=== PATIENT | male | born 1950 | race Caucasian/White ===

== ENCOUNTER 2021-01-18 10:09 | Day surgery (SDC) | payer OTHER ==
[2021-01-16 10:07] VITALS: BMI 30.4
--- NOTE | 2021-01-17 15:31 | HP ---
HISTORY AND PHYSICAL DATE OF SURGERY: 01/18/2021 Marco A Barajas is a 70-year-old gentleman seen with progressive right knee pain. We discussed options for treatment. He elected to proceed with arthroscopy. Consent was obtained. PAST MEDICAL HISTORY: Gastroesophageal reflux disease. PAST SURGICAL HISTORY: Carpal tunnel release, cholecystectomy. MEDICATIONS: Omeprazole, aspirin. ALLERGIES: None. SOCIAL HISTORY: He denies tobacco use. PHYSICAL EXAMINATION: Evaluation of the right knee his range of motion is 0 to 130. There is a mild effusion. Tenderness medial joint line. Positive medial Andrzej's. Ligaments are stable. Hip rotation is without pain. His distal neurovascular exam is intact. RADIOGRAPHS: Right knee radiographs revealed moderate osteoarthritic changes. Right knee MRI revealed medial meniscal tear and osteoarthritis. IMPRESSION: 1. Internal derangement of right knee with medial meniscal tear. 2. Right knee osteoarthritis. 3. Gastroesophageal reflux disease. PLAN: Right knee arthroscopy with partial meniscectomy and debridement. MMODL / IJN: [id number] /
[~2021-01-18 10:09] MED LIST: DEXAMETHASONE SOD PHOSPHATE 4 MG/ML 1 ML VIAL IV ONE; HYDROmorphone 0.5 MG/0.5 ML SYRINGE IVP PRN; LACTATED RINGERS 1,000 ML IV SCH; LIDOCAINE 1% (10MG/ML) FOR IV START INTRADERMA PRN; ONDANSETRON 4 MG/2 ML VIAL IVP ONE
[2021-01-18 10:34] VITALS: RESP 16
[2021-01-18] MEDS ORDERED: fentaNYL (PF) 50 MCG/ML 2 ML AMP ONE (11:17)
[2021-01-18] MEDS ORDERED: SUCCINYLCHOLINE CHLORIDE 100 MG/5 ML SYR IV ONE (11:17)
[2021-01-18] MEDS ORDERED: MIDAZOLAM 2 MG/2 ML VIAL ONE (11:17)
[2021-01-18] MEDS ORDERED: PROPOFOL 10 MG/ML 20 ML VIAL IV ONE (11:17)
[2021-01-18] MEDS ORDERED: GLYCOPYRROLATE 0.2 MG/ML 2 ML VIAL ONE (11:17)
[2021-01-18] MEDS ORDERED: LIDOCAINE 1% INJ 10MG/ML (20 ML MDV) ONE (11:17)
[2021-01-18] MEDS ORDERED: BUPIVACAINE (PF) 0.25% 30 ML VIAL INTRAARTIC ONE (11:18)
--- NOTE | 2021-01-18 12:12 | P.OP ---
Date of Procedure: 01/18/21 Preoperative Diagnosis: Internal derangement right knee Postoperative Diagnosis: 1. Tear medial meniscus right knee 2. Grade 3 chondromalacia medial femoral condyle right knee 3. Reactive synovitis medial, lateral and suprapatellar compartments right knee Procedure(s) Performed: 1. Arthroscopic partial medial meniscectomy right knee 2. Arthroscopic chondroplasty medial femoral condyle right knee 3. Arthroscopic partial synovectomy medial, lateral and suprapatellar compartments right knee Anesthesia: PRANAYA, local Surgeon: Elton Franklin Estimated Blood Loss (ml): 7 Pathology: none sent Condition: stable Disposition: PACU Indications for Procedure: 70-year-old patient seen with progressive right knee pain. After treatment options were discussed, he elected to proceed with arthroscopy. Operative Findings: See description of procedure Description of Procedure: Patient was taken to the operative suite. Patient underwent a general anesthetic by the department of anesthesia. Patient was given preoperative a ntibiotics. The right lower extremity was placed in a well-padded arthroscopic leg oliveros. The right leg was prepped and draped in the normal sterile orthopedic fashion. A lateral parapatellar and suprapatellar incision was made. Trochars were inserted. Arthroscopy was initiated. Suprapatellar pouch revealed diffuse thick reactive synovitis. The patellofemoral joint appeared to articulate congruently. There was grade 2 chondromalacia of the patella with no significant osteochondral tears present. The scope was guided into the medial gutter. No loose bodies or plica were identified. The scope was then guided into the medial compartment. A medial parapatellar incision was made. Trocar inserted followed by probe. There was a complex tear involving the posterior horn and midbody of the medial meniscus. There were grade 3 chondromalacia changes of the medial femoral condyle with some osteochondral tears present. There were grade 3/4 chondromalacia changes of medial tibial plateau and an area along the medial aspect with exposed bone measuring approximately 1 x 1.5 cm. There was reactive synovitis anteriorly. I performed a partial medial meniscectomy getting down to stable meniscal tissue. I performed a chondroplasty of the medial femoral condyle getting down to stable osteochondral tissue. I performed a partial synovectomy decompressing the thick reactive synovitis. The residual meniscus was probed and found be stable. The residual osteochondral surface of the medial femoral condyle was stable. There was good decompression of the synovitis. Scope and probe were then guided into the intercondylar notch. Cruciates were identified, probed and found to be stable. The scope and probe were then guided into lateral compartment. lateral meniscus is probed and found to be stable. There were mild grade 1 chondromalacia changes lateral compartment. There was some thick reactive synovitis anteriorly. I introduced a motorized shaver and performed a partial synovectomy decompressing the thick reactive synovitis. The shaver was removed. There was good decompression of the synovitis. The scope was in guided back into the suprapatellar compartment. I introduced a motorized shaver into the super patellar compartment. I debrided some piecemeal fragments of meniscus I encountered. I performed a partial synovectomy decompressing the thick reactive synovitis. The shaver was removed. There was good decompression of the synovitis. Instruments were now removed from the joint. The joint was infiltrated with .25% Marcaine. Steri-Strips were applied to the portal sites. Sterile dressings were applied. The patient was placed into a TONY hose. No tourniquet was utilized. The patient was awakened, transferred to a bed and taken to recovery stable satisfactory condition.
[2021-01-18 12:16] VITALS: TEMP 97
[2021-01-18 13:13] VITALS: BP 120/82; PULSE 53
== END 2021-01-18 13:59 | disposition home or self-care (01) ==
LOC: OR 10:09
PROVIDERS: ATTEND Orthopaedic Surgery
DX: S83.241A Other tear of medial meniscus, current injury, right knee, initial encounter (principal); K21.9 Gastro-esophageal reflux disease without esophagitis; Z79.899 Other long term (current) drug therapy; Z79.82 Long term (current) use of aspirin; M17.11 Unilateral primary osteoarthritis, right knee
CPT/HCPCS: 29881; 29876; J2250; J1100; J0690; J2405; J2001; J3010; J0330; J2704

== ENCOUNTER 2021-03-16 09:32 | Day surgery (SDC) | payer OTHER ==
[2021-03-13 11:49] VITALS: BMI 30.2
--- NOTE | 2021-03-15 21:22 | HP ---
HISTORY AND PHYSICAL REASON FOR ADMISSION: Surgery 03/16/2021 HISTORY OF PRESENT ILLNESS: Marco A Barajas is a 70-year-old gentleman seen with progressive left knee pain. We discussed options for treatment. He elected to proceed with arthroscopy. Consent was obtained. PAST MEDICAL HISTORY: Gastroesophageal reflux disease. PAST SURGICAL HISTORY: Cholecystectomy, carpal tunnel surgery. MEDICATIONS: Tylenol, omeprazole. ALLERGIES: None. SOCIAL HISTORY: Denies tobacco use. PHYSICAL EVALUATION OF THE LEFT KNEE: Range of motion 0-125. Tenderness along the medial lateral joint line. Positive medial Andrzej's. Positive lateral Andrzej's. Ligaments stable. Hip rotation without pain. Distal neurovascular exam intact. RADIOGRAPHS: Radiographs of the left knee revealed moderate osteoarthritic changes. MRI left knee revealed medial and lateral meniscal tears. IMPRESSION: 1. Internal derangement of left knee with medial and lateral meniscal tears. 2. Left knee osteoarthritis. 3. Gastroesophageal reflux disease. PLAN: Left knee arthroscopy with partial meniscectomy and debridement. Surgery scheduled for 03/16/2021. MMODL / IJN: [id number] /
[~2021-03-16 09:32] MED LIST changes: -LIDOCAINE 1% (10MG/ML) FOR IV START INTRADERMA PRN; +MIDAZOLAM 2 MG/2 ML VIAL IV PRN
[2021-03-16 10:12] VITALS: RESP 16
[2021-03-16] MEDS ORDERED: LIDOCAINE 1% INJ 10MG/ML (20 ML MDV) ONE (11:51)
[2021-03-16] MEDS ORDERED: fentaNYL (PF) 50 MCG/ML 2 ML AMP ONE (11:51)
[2021-03-16] MEDS ORDERED: PROPOFOL 10 MG/ML 20 ML VIAL IV ONE (11:51)
[2021-03-16] MEDS ORDERED: MIDAZOLAM 2 MG/2 ML VIAL ONE (11:51)
[2021-03-16] MEDS ORDERED: SUCCINYLCHOLINE CHLORIDE 100 MG/5 ML SYR IV ONE (11:51)
[2021-03-16] MEDS ORDERED: BUPIVACAINE (PF) 0.25% 30 ML VIAL SQ ONE (11:54)
--- NOTE | 2021-03-16 12:43 | P.OP ---
Date of Procedure: 03/16/21 Preoperative Diagnosis: Internal derangement left knee Postoperative Diagnosis: 1. Tear medial meniscus left knee 2. Grade 4 chondromalacia medial compartment left knee 3. Reactive synovitis medial, lateral and suprapatellar compartments left knee Procedure(s) Performed: 1. Arthroscopic partial medial meniscectomy left knee 2. Arthroscopic chondroplasty medial femoral condyle left knee 3. Arthroscopic partial synovectomy medial, lateral and suprapatellar compartments left knee Anesthesia: PRANAYA, local Surgeon: Elton Franklin Estimated Blood Loss (ml): 11 Pathology: none sent Condition: stable Disposition: PACU Indications for Procedure: 70-year-old patient seen with progressive left knee pain. After treatment options were discussed, he elected to proceed with arthroscopy. Operative Findings: see description of procedure Description of Procedure: Patient was taken to the operative suite. Patient underwent a general anesthetic by the department of anesthesia. Patient was given preoperative antibiotics. The left lower extremity was placed in a well-padded arthroscopic leg oliveros. The left leg was prepped and draped in the normal sterile orthopedic fashion. A lateral parapatellar and suprapatellar incision was made. Trochars were inserted. Arthroscopy was initiated. Suprapatellar pouch revealed diffuse thick reactive synovitis. The patellofemoral joint appeared to articulate congruently. There was grade 2/3 chondromalacia of the patellofemoral joint without osteochondral tears. The scope was guided into the medial gutter. No loose bodies or plica were identified The scope was then g uided into the medial compartment. A medial parapatellar incision was made. Trocar inserted followed by probe. There was a tear involving the mid body and posterior horn of the medial meniscus. There were areas of grade 4 chondromalacia involving the medial femoral condyle and tibial plateau along its weightbearing surface area with exposed bone on both sides([id number] arthritis). There was thick reactive synovitis anteriorly. I performed a partial medial meniscectomy getting down to stable meniscal tissue. I performed a chondroplasty along the weightbearing surface the medial femoral condyle with some osteochondral flap tears present getting down to stable osteochondral tissue. I performed a partial synovectomy decompressing the thick reactive synovitis. The residual meniscus was stable. There was good decompression synovitis. Scope and probe were then guided into the intercondylar notch. Cruciates were identified, probed and found to be stable. The scope and probe were then guided into lateral compartment. Lateral meniscus was stable. There were grade 1/2 chondromalacia changes lateral compartment with no tears. There was thick reactive synovitis anteriorly. I introduced a motorized shaver and performed a partial synovectomy decompressing thick reactive synovitis. The shaver was removed. There was good decompression synovitis. The scope was in guided back into the suprapatellar compartment. I introduced a motorized shaver into the super compartment. I debrided some piecemeal fragments of meniscus I encountered. I performed a partial synovectomy. The shaver was removed. There was good decompression of the synovitis. Instruments were now removed from the joint. The joint was infiltrated with .25% Marcaine. Steri-Strips were applied to the portal sites. Sterile dressings were applied. The patient was placed into a TONY hose. No tourniquet was utilized. The patient was awakened, transferred to a bed and taken to recovery stable satisfactory condition.
[2021-03-16 12:53] VITALS: TEMP 97
[2021-03-16 13:24] VITALS: BP 145/82
[2021-03-16] MEDS ORDERED: HYDROcodone/APAP 5-325MG 1 EACH TAB ONE (13:26)
[2021-03-16] MEDS ORDERED: HYDROcodone/APAP 5-325MG 1 EACH TAB PO ONE (13:26)
[2021-03-16 13:42] VITALS: PULSE 58
== END 2021-03-16 14:08 | disposition home or self-care (01) ==
LOC: OR 09:32
PROVIDERS: ATTEND Orthopaedic Surgery
DX: S83.242A Other tear of medial meniscus, current injury, left knee, initial encounter (principal); M94.262 Chondromalacia, left knee; M65.862 Other synovitis and tenosynovitis, left lower leg; K21.9 Gastro-esophageal reflux disease without esophagitis; Z79.899 Other long term (current) drug therapy
CPT/HCPCS: 29881; 29876; J2250; J1100; J0690; J2405; J2001; J3010; J0330; J2704

== ENCOUNTER 2022-04-16 10:56 | Observation (INO) | payer OTHER ==
[2022-04-16] MEDS ORDERED: MORPHINE SULFATE 4 MG/ML SYRINGE IVP STA (12:36)
[2022-04-16] MEDS ORDERED: HYDROmorphone 1 MG/ML 1 ML SYRINGE IVP STA (12:59)
[2022-04-16] MEDS ORDERED: NALOXONE 0.4 MG/ML 1 ML VIAL IV PRN (13:00)
[2022-04-16] MEDS ORDERED: ONDANSETRON 4 MG/2 ML VIAL IVP PRN (13:00)
[2022-04-16] MEDS ORDERED: HYDROmorphone 1 MG/ML 1 ML SYRINGE IVP PRN (13:00)
--- NOTE | 2022-04-16 13:00 | ED ---
Male Urogenital HPI - General Chief complaint: Urogenital Stated complaint: abd pain Time Seen by Provider: 04/16/22 11:16 Source: EMS Mode of arrival: EMS Limitations: no limitations - History of Present Illness Initial comments: 71-year-old male with past medical history of nephrolithiasis, Obregon's esophagus presents to the emergency department from [facility]. Patient reports that he's had some dull left flank pain for the past couple of days. Thought that it was due to his hip replacement. This morning the patient awoke and had significant pain. He went into [facility] where they found that he had a 6 mm proximal left ureteral stone. Kidney function was normal. No signs of urinary tract infection. He did receive fentanyl and Toradol but continued to have pain and therefore he was transferred to our hospital. Rates his pain currently as a 6 out of 10. Admits to nausea without vomiting. No fevers. No other alleviating, precipitating or modifying factors - Related Data Home Medications Medication Instructions Recorded Confirmed Aspirin EC [Ecotrin Low Dose] 81 mg PO DAILY 04/16/22 04/16/22 Omeprazole Magnesium [PriLOSEC OTC] 20 mg PO DAILY 04/16/22 04/16/22 Previous Rx's Medication Instructions Recorded Ketorolac [Toradol] 10 mg PO Q6HR PRN #12 tab 04/17/22 Ketorolac [Toradol] 10 mg PO Q6HR PRN #12 tab 04/17/22 Tamsulosin [Flomax] 0.4 mg PO DAILY #30 cap 04/17/22 Tamsulosin [Flomax] 0.4 mg PO DAILY #30 cap 04/17/22 Allergies Allergy/AdvReac Type Severity Reaction Status Date / Time No Known Allergies Allergy Verified 04/16/22 13:43 Review of Systems ROS Statement: Those systems with pertinent positive or pertinent negative responses have been documented in the HPI. ROS Other: All systems not noted in ROS Statement are negative. Past Medical History Past Medical History: GERD/Reflux Additional Past Medical History / Comment(s): Hx kidney stones 20 yrs ago. History of Any Multi-Drug Resistant Organisms: None Reported Past Surgical History: Orthopedic Surgery Additional Past Surgical History / Comment(s): Carpal tunnel surgery, surgery for kidney stones, total knee replacement Past Anesthesia/Blood Transfusion Reactions: No Reported Reaction, Motion Sickness Past Psychological History: No Psychological Hx Reported Smoking Status: Never smoker Past Alcohol Use History: None Reported Past Drug Use History: None Reported - Past Family History Mother Family Medical History: No Reported History General Exam Limitations: no limitations General appearance: alert, in no apparent distress Head exam: Present: atraumatic, normocephalic, normal inspection Eye exam: Present: normal appearance, PERRL, EOMI. Absent: scleral icterus, conjunctival injection, periorbital swelling ENT exam: Present: normal exam, mucous membranes moist Neck exam: Present: normal inspection. Absent: tenderness, meningismus, lymphadenopathy Respiratory exam: Present: normal lung sounds bilaterally. Absent: respiratory distress, wheezes, rales, rhonchi, stridor Cardiovascular Exam: Present: regular rate, normal rhythm, normal heart sounds. Absent: systolic murmur, diastolic murmur, rubs, gallop, clicks GI/Abdominal exam: Present: soft, normal bowel sounds. Absent: distended, tenderness, guarding, rebound, rigid Extremities exam: Present: normal inspection, full ROM, normal capillary refill. Absent: tenderness, pedal edema, joint swelling, calf tenderness Back exam: Present: CVA tenderness (L) Neurological exam: Present: alert, oriented X3, CN II-XII intact Psychiatric exam: Present: normal affect, normal mood Skin exam: Present: warm, dry, intact, normal color. Absent: rash Course Vital Signs 04/16/22 04/16/22 04/16/22 10:58 12:54 14:00 Temperature 97.3 F L Pulse Rate 48 L 49 L Respiratory 16 18 18 Rate Blood Pressure 136/78 128/71 O2 Sat by Pulse 99 98 Oximetry Medical Decision Making - Medical Decision Making Upon arrival patient is placed into room 18. There are history and physical exam was performed. Patient was given 1 mg of Dilaudid for pain control. I reviewed the patient's transfer paperwork. Did call and speak with Dr. Ceron. Patient will be admitted for uncontrolled pain - Lab Data Result diagrams: 04/17/22 05:24 04/17/22 05:24 Disposition Clinical Impression: Left ureteral stone, Flank pain, Bladder calculi Disposition: ADMITTED IP TO THIS HOSP Condition: Good Is patient prescribed a controlled substance at d/c from ED?: No Time of Disposition: 12:57 Decision to Admit Reason: Admit from EC Decision Date: 04/16/22 Decision Time: 12:57
[2022-04-16] MEDS: SODIUM CHLORIDE 0.9% 1,000 ML IV SCH ×2 (13:09→21:17)
--- NOTE | 2022-04-16 13:36 | P.GSHP ---
History of Present Illness H&P Date: 04/16/22 Chief Complaint: Left renal colic The patient is a 71-year-old white male with a history of recurrent urolithiasis. He has undergone stent placement in the past, as well as ESWL. He has experienced left lower back/hip discomfort for several days, but his pain became severe early this morning. He was evaluated at [facility]. A CT scan showed evidence of mild left hydronephrosis due to a 6 mm left proximal ureteral calculus. Bladder calculi were also seen. - Constitutional Constitutional: Denies chills, Denies fever - Gastrointestinal Gastrointestinal: Reports nausea, Reports vomiting - Genitourinary (Female) Genitourinary: Reports flank pain, Reports kidney stones, Denies dysuria, Denies hematuria Past Medical History Past Medical History: GERD/Reflux Additional Past Medical History / Comment(s): Hx kidney stones 20 yrs ago. History of Any Multi-Drug Resistant Organisms: None Reported Past Surgical History: Orthopedic Surgery Additional Past Surgical History / Comment(s): Carpal tunnel surgery, surgery for kidney stones, total knee replacement Past Anesthesia/Blood Transfusion Reactions: No Reported Reaction, Motion Sickness Past Psychological History: No Psychological Hx Reported Smoking Status: Never smoker Past Alcohol Use History: None Reported Past Drug Use History: None Reported - Past Family History Mother Family Medical History: No Reported History Medications and Allergies Home Medications Medication Instructions Recorded Confirmed Type No Known Home Medications 03/13/21 03/13/21 History Allergies Allergy/AdvReac Type Severity Reaction Status Date / Time No Known Allergies Allergy Verified 03/16/21 10:06 Surgical - Exam Vital Signs Temp Pulse Resp BP Pulse Ox 97.3 F L 48 L 16 136/78 99 04/16/22 10:58 04/16/22 10:58 04/16/22 10:58 04/16/22 10:58 04/16/22 10:58 - General well developed, well nourished, moderate distress - Neck no masses, trachea midline - Respiratory normal respiratory effort - Abdomen Abdomen: soft, non tender, no guarding, no rigid, no rebound - Genitourinary normal penis with no external lesions, testicles non-tender - Psychiatric oriented to time, oriented to person, oriented to place, speech is normal, memory intact Results - Imaging CT scan - abdomen: report reviewed Assessment and Plan (1) Calculus of ureter Current Visit: Yes Status: Acute Code(s): N20.1 - CALCULUS OF URETER SNOMED Code(s): 58521220 (2) Hydronephrosis with obstructing calculus Current Visit: Yes Status: Acute Code(s): N13.2 - HYDRONEPHROSIS WITH RENAL AND URETERAL CALCULOUS OBSTRUCTION SNOMED Code(s): 90510400 Plan: I had a lengthy discussion with the patient regarding his obstructing ureteral calculus. He has been admitted for the management of intractable pain. I have suggested he undergo cystoscopy with left ureteral stent insertion to relieve obstruction. I'm hopeful that this can be performed later today. This was reviewed with the patient, and potential risks were discussed including anesthesia, bleeding, infection, ureteral injury, and inability to successfully place the stent. He will likely undergo elective ureteroscopic removal of the calculus in 2-3 weeks, at which time the ureteral stent will be removed. Time with Patient: Greater than 30
[2022-04-16] MEDS ORDERED: LIDOCAINE 2% INJ 20 MG/ML (2 ML VIAL) ONE (22:00)
[2022-04-16] MEDS ORDERED: fentaNYL (PF) 50 MCG/ML 2 ML AMP ONE (22:00)
[2022-04-16] MEDS ORDERED: MIDAZOLAM 2 MG/2 ML VIAL ONE (22:00)
[2022-04-16] MEDS ORDERED: IV FLUID CONTINUATION 1,000 ML IV ONE (22:00)
[2022-04-16] MEDS ORDERED: SODIUM CHLORIDE 0.9% 100 ML BAG ONE (22:00)
[2022-04-16] MEDS ORDERED: ceFAZolin 1,000 MG VIAL ONE (22:00)
[2022-04-16] MEDS ORDERED: PROPOFOL 10 MG/ML 20 ML VIAL IV ONE (22:00)
[2022-04-16] MEDS ORDERED: KETOROLAC 15 MG/ML 1 ML VIAL IVP PRN (22:39)
--- NOTE | 2022-04-16 22:39 | P.OP ---
Date of Procedure: 04/16/22 Preoperative Diagnosis: Left ureteral calculus, bladder calculi Postoperative Diagnosis: Same Procedure(s) Performed: Cystoscopy, removal of bladder calculi, left ureteral stent insertion Anesthesia: PRANAYA Surgeon: Hoang Ceron Estimated Blood Loss (ml): 0 IV fluids (ml): 400 Pathology: other (Bladder calculi, sent for chemical analysis) Condition: stable Disposition: PACU Indications for Procedure: The patient is a 71-year-old white male admitted with left renal colic. CT scan shows evidence of left hydronephrosis due to a 6 mm left proximal ureteral calculus. 2 small bladder calculi are also seen. He now comes for cystoscopy with stent insertion. Operative Findings: 2 small bladder calculi removed and sent for chemical analysis. Successful left ureteral stent insertion. Description of Procedure: The patient was taken to the operating room and placed in the dorsolithotomy position, with legs supported in Mikey stirrups. The external genitalia was prepped and draped sterilely. The 30 lens was used to introduce the 22-[place] Stortz cystoscopic sheath through the urethra and into the bladder under direct vision. The prostatic urethra showed evidence of trilobar enlargement. The bladder was examined in its entirety. Both ureteral orifices were of normal anatomic location and configuration. No tumors were seen. 2 small bladder calculi were seen and were removed through the cystoscope, the largest measuring approximately 3-4 mm in size. A 0.035 inch Glidewire was passed through the cystoscope. The left ureteral orifice was cannulated, and the Glidewire was s lowly advanced beyond the calculus (which was radio opaque) and up to the renal pelvis. A 24 cm, 6-[place] Islander double-J ureteral stent was placed over the wire. Proper stent positioning was verified fluoroscopically and endoscopically. The bladder was emptied and the cystoscope removed. The patient tolerated the procedure well was taken to the recovery room in stable condition.
[2022-04-17] MEDS: SODIUM CHLORIDE 0.9% 1,000 ML IV SCH (03:56)
--- NOTE | 2022-04-17 07:33 | FL ---
Intraoperative/procedural fluoroscopic services were provided for a left ureteral stent placement. To fabby fluoroscopy time is 3 seconds with a total of 1 submitted image to PACS. Please see the operative note for further details.
[2022-04-17 08:22] VITALS: BP 124/64; PULSE 64; RESP 18; TEMP 99.3
--- NOTE | 2022-04-17 08:50 | P.DS ---
Providers Date of admission: 04/16/22 13:00 Expected date of discharge: 04/17/22 Attending physician: Hoang Ceron Primary care physician: Physician Nonstaff - Discharge Diagnosis(es) (1) Calculus of ureter Current Visit: Yes Status: Acute (2) Hydronephrosis with obstructing calculus Current Visit: Yes Status: Acute Hospital Course: Patient is a 71-year-old white male admitted with left renal colic due to a 6 mm left proximal ureteral calculus. He was treated with IV hydration and pa renteral analgesics. He underwent placement of a left ureteral stent and was more comfortable the following morning. He reported hematuria and was reassured that this is expected following stent placement. He will be discharged home, and arrangements made for him to undergo ureteroscopic removal of his calculus. Procedures: Cystoscopy, left ureteral stent insertion in 04/16/2022 Patient Condition at Discharge: Good Plan - Discharge Summary Discharge Rx Participant: No New Discharge Prescriptions: New Tamsulosin [Flomax] 0.4 mg PO DAILY #30 cap Tamsulosin [Flomax] 0.4 mg PO DAILY #30 cap Ketorolac [Toradol] 10 mg PO Q6HR PRN #12 tab PRN Reason: Pain Ketorolac [Toradol] 10 mg PO Q6HR PRN #12 tab PRN Reason: Pain No Action Aspirin EC [Ecotrin Low Dose] 81 mg PO DAILY Omeprazole Magnesium [PriLOSEC OTC] 20 mg PO DAILY Discharge Medication List Aspirin EC [Ecotrin Low Dose] 81 mg PO DAILY 04/16/22 [History] Omeprazole Magnesium [PriLOSEC OTC] 20 mg PO DAILY 04/16/22 [History] Ketorolac [Toradol] 10 mg PO Q6HR PRN #12 tab 04/17/22 [Rx] Ketorolac [Toradol] 10 mg PO Q6HR PRN #12 tab 04/17/22 [Rx] Tamsulosin [Flomax] 0.4 mg PO DAILY #30 cap 04/17/22 [Rx] Tamsulosin [Flomax] 0.4 mg PO DAILY #30 cap 04/17/22 [Rx] Follow up Appointment(s)/Referral(s): Nonstaff,Physician [Primary Care Provider] - 1-2 days Activity/Diet/Wound Care/Special Instructions: Diet as tolerated. Activity as tolerated. Patient will be contacted by Dr. Ceron' office to arrange follow-up. Discharge Disposition: HOME SELF-CARE
[2022-04-17 09:28] LABS: African American GFR (CKD) 64.1 (60.0-200.0); Anion Gap 5.8 mmol/L (10.00-18.00); BUN/Creat Ratio 16.31 Ratio (12.00-20.00); Basophils # (A) 0.03 X 10*3/uL (0.00-0.10); Basophils % (A) 0.4 %; Blood Urea Nitrogen 21.2 mg/dL (9.0-27.0); Calcium 8.1 mg/dL (8.7-10.3); Carbon Dioxide 27.2 mmol/L (20.0-27.5); Eosinophils # (A) 0.15 X 10*3/uL (0.04-0.35); HGB 11.5 g/dL (13.0-17.0); Immature Grans, Automated 0.4 %; Lymphocytes # (A) 0.76 X 10*3/uL (0.90-5.00); MCH 28.9 pg (27.0-32.0); MCHC 32.9 g/dL (32.0-37.0); MCV 87.9 fL (80.0-97.0); Mean Platelet Volume 11.4 fL (9.5-12.2); Monocytes # (A) 0.69 X 10*3/uL (0.20-1.00); Monocytes % (A) 9.1 %; NRBC Per 100 WBC 0 /100 WBCS (0.0-0.0); Neutrophils # (A) 5.93 X 10*3/uL (1.80-7.70); Neutrophils % (A) 78.1 %; Non-African American GFR(CKD) 55.3 (60.0-200.0); Platelet Count 156 X 10*3/uL (140-440); Potassium 4.1 mmol/L (3.5-5.5); RBC 3.98 X 10*6/uL (4.40-5.60); RDW 15.3 % (11.5-14.5); WBC 7.59 X 10*3/uL (4.50-10.00)
== END 2022-04-17 10:05 | disposition home or self-care (01) ==
LOC: EC 10:56 → 6NMEDSUR 13:00
PROVIDERS: ADMIT Urology; ATTEND Urology
DX: N13.2 Hydronephrosis with renal and ureteral calculous obstruction (principal); N21.0 Calculus in bladder; K22.70 Barrett's esophagus without dysplasia; K21.9 Gastro-esophageal reflux disease without esophagitis; Z79.82 Long term (current) use of aspirin; Z79.899 Other long term (current) drug therapy; Z87.442 Personal history of urinary calculi; Z96.659 Presence of unspecified artificial knee joint; Z90.49 Acquired absence of other specified parts of digestive tract; Z98.890 Other specified postprocedural states
CPT/HCPCS: 52332; 96374; 99285; 80048; 85025; 82365; G0378 ×2; C2625; C1769; C1758; J2250; J0690; J3010; J1170; J1885; J2704; J2001

== ENCOUNTER 2022-05-10 07:00 | Day surgery (SDC) | payer OTHER ==
--- NOTE | 2022-05-05 14:49 | P.GSHP ---
History of Present Illness H&P Date: 05/05/22 Chief Complaint: Left flank pain The patient is a 71-year-old white male with a history of recurrent urolithiasis. He has undergone stent placement in the past, as well as ESWL. He experienced left lower back/hip discomfort for several days last month, and he presented to the ER at [facility] when his pain became severe. A CT scan showed evidence of mild left hydronephrosis due to a 6 mm left proximal ureteral calculus. Bladder calculi were also seen. He was transferred to [facility] for further management on underwent left ureteral stent insertion. He now comes for cystoscopy, left ureteral stent removal, left ureteroscopy with Holmium laser lithotripsy and possible stone basketing. - Constitutional Constitutional: Denies chills, Denies fever - Gastrointestinal Gastrointestinal: Reports nausea, Reports vomiting - Genitourinary (Male) Genitourinary: Reports flank pain, Reports hematuria, Reports kidney stones, Denies dysuria Past Medical History Past Medical History: GERD/Reflux Additional Past Medical History / Comment(s): Hx kidney stones 20 yrs ago. History of Any Multi-Drug Resistant Organisms: None Reported Past Surgical History: Orthopedic Surgery Additional Past Surgical History / Comment(s): Carpal tunnel surgery, surgery for kidney stones, total knee replacement Past Anesthesia/Blood Transfusion Reactions: No Reported Reaction, Motion Sickness Past Psychological History: No Psychological Hx Reported Smoking Status: Never smoker Past Alcohol Use History: None Reported Past Drug Use History: None Reported - Past Family History Mother Family Medical History: No Reported History Medications and Allergies Home Medications Medication Instructions Recorded Confirmed Type Aspirin EC [Ecotrin Low Dose] 81 mg PO DAILY 04/16/22 04/16/22 History Omeprazole Magnesium [PriLOSEC OTC] 20 mg PO DAILY 04/16/22 04/16/22 History Ketorolac [Toradol] 10 mg PO Q6HR PRN #12 tab 04/17/22 Rx Ketorolac [Toradol] 10 mg PO Q6HR PRN #12 tab 04/17/22 Rx Tamsulosin [Flomax] 0.4 mg PO DAILY #30 cap 04/17/22 Rx Tamsulosin [Flomax] 0.4 mg PO DAILY #30 cap 04/17/22 Rx Allergies Allergy/AdvReac Type Severity Reaction Status Date / Time No Known Allergies Allergy Verified 04/16/22 13:43 Surgical - Exam - General well developed, well nourished, no distress - Respiratory normal respiratory effort - Abdomen Abdomen: soft, non tender, no guarding, no rigid, no rebound - Genitourinary normal penis with no external lesions, testicles non-tender - Psychiatric oriented to time, oriented to person, oriented to place, speech is normal, memory intact Results - Imaging CT scan - abdomen: report reviewed Assessment and Plan (1) Calculus of ureter Status: Acute Code(s): N20.1 - CALCULUS OF URETER SNOMED Code(s): 70888412 Plan: Cystoscopy, left ureteral stent removal, left ureteroscopy with Holmium laser lithotripsy and possible stone basketing. Replacement of the stent may be required. The procedure has been reviewed in detail with the patient. He has been made aware of potential risks, which include anesthesia, bleeding, infection, inability to remove the calculus, and ureteral injury.
[~2022-05-10 07:00] MED LIST changes: -MIDAZOLAM 2 MG/2 ML VIAL IV PRN
--- NOTE | 2022-05-10 07:35 | XR ---
EXAMINATION TYPE: XR KUB DATE OF EXAM: 05/10/2022 Comparison: None Clinical History: 71-year-old male N20.1 left ureteral calculus Findings: Cholecystectomy clips. Left ureteral stent. 5 mm stone projecting at the lower pole of the left kidne y. Multiple pelvic phleboliths. Degenerative changes lower lumbar spine. A couple prominent air-fille d small bowel loops in the left mid abdomen measuring up to 2.8 cm. Overall nonobstructive bowel gas pattern and mild stool burden. Impression: Left ureteral stent. 5 mm left lower pole renal calculus. Multiple pelvic phleboliths.
[2022-05-10] MEDS ORDERED: ROCURONIUM 10 MG/ML (5 ML VIAL) IV ONE (08:36)
[2022-05-10] MEDS ORDERED: SUCCINYLCHOLINE CHLORIDE 200 MG/10 ML VIAL IV ONE (08:36)
[2022-05-10] MEDS ORDERED: NEOSTIGMINE 1 MG/ML 10 ML VIAL ONE (08:36)
[2022-05-10] MEDS ORDERED: LIDOCAINE 2% INJ 20 MG/ML (2 ML VIAL) ONE (08:36)
[2022-05-10] MEDS ORDERED: fentaNYL (PF) 50 MCG/ML 2 ML AMP ONE (08:36)
[2022-05-10] MEDS ORDERED: ePHEDrine 50 MG/ML 1 ML VIAL ONE (08:36)
[2022-05-10] MEDS ORDERED: PROPOFOL 10 MG/ML 20 ML VIAL IV ONE (08:36)
[2022-05-10] MEDS ORDERED: GLYCOPYRROLATE 0.2 MG/ML 2 ML VIAL ONE (08:36)
[2022-05-10] MEDS ORDERED: MIDAZOLAM 2 MG/2 ML VIAL ONE (08:36)
[2022-05-10 10:29] VITALS: TEMP 96.9
--- NOTE | 2022-05-10 10:47 | P.OP ---
Date of Procedure: 05/10/22 Preoperative Diagnosis: Left renal calculus Postoperative Diagnosis: Same Procedure(s) Performed: Cystoscopy, left ureteral stent removal, left ureteroscopy with Holmium laser lithotripsy and stone basketing Anesthesia: SHABNAM Surgeon: Hoang Ceron Estimated Blood Loss (ml): 5 IV fluids (ml): 600 Pathology: other Condition: stable Disposition: PACU Indications for Procedure: The patient is a 71-year-old white male with a history of recurrent urolithiasi s. He has undergone stent placement in the past, as well as ESWL. He experienced left lower back/hip discomfort for several days last month, and he presented to the ER at [facility] when his pain became severe. A CT scan showed evidence of mild left hydronephrosis due to a 6 mm left proximal ureteral calculus. Bladder calculi were also seen. He was transferred to [facility] for further management on underwent left ureteral stent insertion. He now comes for cystoscopy, left ureteral stent removal, left ureteroscopy with Holmium laser lithotripsy and possible stone basketing. Preoperative KUB x-ray shows that the calculus is currently located within the left lower pole calyx. Operative Findings: LLP renal calculus, successfully fragmented and basketed. Description of Procedure: The patient was taken to the operating room and placed in the dorsolithotomy position, with legs supported in Mikey stirrups. The external genitalia was prepped and draped sterilely. The 30 lens was used to introduce the 21-Tajik Duarte cystoscopic sheath through the urethra and into the bladder under direct vision. The prostatic urethra showed evidence of mild lateral lobe enlargement. The bladder was examined in its entirety. No abnormalities were seen. The distal end of the left ureteral stent was grasped and removed along with the cystoscope. A 0.038 inch Glidewire was passed through the stent and advanced up to the left renal pelvis. The stent was removed, and an 11/13-Tajik ureteral access catheter was passed over the wire, up to the proximal ureter. The flexible ureteroscope was then passed through the ureteral access catheter sheath, up to the kidney. Each calyx was examined. The calculus was seen within a lower pole calyx. The 200 micron Holmium laser probe was passed through the ureteroscope, and lithotripsy was performed. After fragmenting the calculus, all calculus fragments were removed using a 1.9-Tajik nitinol basket. Pullout ureteroscopy showed no evidence of ureteral injury. The patient tolerated the procedure well and was taken to the recovery room in stable cond ition. [facility] Report: Procedure Acuity: Elective Stone Size and Location: 5 mm, left lower pole Ureteral Dilation: No Ureteral Access Sheath Used: Yes Stone Sent for Analysis: Yes All Stones/Fragments Were Removed with a Basket: Yes Complications: No Preoperative Antibiotics Given: Yes Stent Placed: No Discharge Medications: None
[2022-05-10 11:04] VITALS: RESP 15
[2022-05-10] MEDS ORDERED: KETOROLAC 15 MG/ML 1 ML VIAL ONE (11:32)
[2022-05-10] MEDS ORDERED: KETOROLAC 15 MG/ML 1 ML VIAL IVP ONE (11:39)
--- NOTE | 2022-05-10 11:41 | FL ---
Intraoperative/procedural fluoroscopic services were provided for a left kidney stone removal. Total fluoroscopy time is 6 seconds with a total of 2 submitted images to PACS. Please see the operative no te for further details.
[2022-05-10 11:47] VITALS: BP 142/80; PULSE 74
== END 2022-05-10 12:07 | disposition home or self-care (01) ==
LOC: OR 07:00
PROVIDERS: ATTEND Urology
DX: N13.2 Hydronephrosis with renal and ureteral calculous obstruction (principal); K21.9 Gastro-esophageal reflux disease without esophagitis; Z98.890 Other specified postprocedural states; Z96.659 Presence of unspecified artificial knee joint; Z79.82 Long term (current) use of aspirin; Z79.1 Long term (current) use of non-steroidal anti-inflammatories (NSAID); Z79.899 Other long term (current) drug therapy
CPT/HCPCS: 74018; 52353; C1769; J2250; J0330; J1100; J2710; J0690; J2405; J3010; J1885; J2704; J2001

== ENCOUNTER → 2025-02-13 | Outpatient (CLI) | payer OTHER ==
--- NOTE | 2025-02-13 11:09 | MR ---
INDICATION: Patient age:Male; 74 years old; Reason for study: M54.2 CERVICALGIA; PHH. COMPARISON: . TECHNIQUE: Multi planar, multi sequence imaging was performed of the cervical spine. No Gadolinium wa s given. FINDINGS: Alignment: The cervical vertebral bodies have preserved heights. Grade 1 anterolisthesis of C7 on T1 with grade 1 retrolisthesis of C5 on C6 and C6 on C7. Bones: Multilevel anterior osteophytosis. Type II Modic changes involving the endplates around the C5 -C6 and C6-C7 discs. Cord: The spinal cord is unremarkable with regards to their signal intensity and morphology. Discs: Multilevel disc desiccation is present with prominent disc height loss at C5-C6 and C6-C7. C2-C3: No significant disc pathology. The spinal canal is patent. No neural foraminal stenosis. C3-C4: Posterior disc osteophyte complex without significant effacement of the anterior thecal sac. N o significant spinal canal stenosis. Uncovertebral joint hypertrophy. Mild left neural foraminal sten osis. The right neural foramen is patent. C4-C5: Broad-based disc bulge and uncovertebral joint hypertrophy. Mild effacement of anterior thecal sac. No significant spinal canal stenosis. Mild left and moderate right neural foraminal stenosis. C5-C6: Posterior disc osteophyte complex with effacement of the anterior thecal sac. Mild spinal libby l stenosis. Uncovertebral joint hypertrophy. Mild right and moderate to severe left neural foraminal stenosis. C6-C7: Broad-based disc bulge with effacement of the anterior thecal sac. Mild spinal canal stenosis. Uncovertebral joint hypertrophy. Moderate left and mild right neural foraminal stenosis. C7-T1: No significant disc pathology. The spinal canal is patent. No neural foraminal stenosis. Other: None. IMPRESSION: Multilevel disc degeneration with associated osteoarthritic changes as described above. Most pronounc ed from C5 through C7 with mild spinal canal stenosis. Multilevel varying degrees of neural foraminal stenosis as described above. [facility], , 02/13/2025 11:07 AM
== END | disposition home or self-care (01) ==
LOC: RADMRIMAIN 09:36
PROVIDERS: ATTEND Family Medicine
DX: M48.02 Spinal stenosis, cervical region (principal); M50.30 Other cervical disc degeneration, unspecified cervical region
CPT/HCPCS: 72141